=== PATIENT | male | born 2005 | race Caucasian/White ===

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

== ENCOUNTER 2025-07-30 17:20 | Emergency (ER) | payer BC, SELFPAY ==
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
--- OUTSIDE RECORDS SUMMARY | 2025-07-30 17:22 | XMS_ITS | Clinical Summary ---
Author Organization [facility] [employer] Address [address] [place] [address] Care Team Providers Care Ward Aide Name Role Phone Chiquis Mcgill MD Primary Care Provider [phone] Jenni Avalos MD Unavailable [phone] Source Comments [facility] [employer],non-owned Affiliates and Associated Physician Practices is amultiple site organization consisting of ambulatory clinics and hospital sitesin [place], [place] and [place]. This disclosure is being madepursuant to the Care Everywhere program and may not contain all information available regarding this patient. Last updated 18.[facility] [employer] Allergies No known active allergies Medications * This document contains information received from the source organization and may not represent a complete record from that organization. * Be aware that medications may not be up to date on this document. Alwaysverify current medications with the patient. SUMAtriptan (IMITREX) 25 MG tablet Take 1 tab by mouth once at first sign of migraine. May repeat one time after 2 hours if needed. 9 tablet 07/19/2021 Active ondansetron, disintegrating, (ZOFRAN ODT) 4 MG tablet Take 1 (one) tablet by mouth every 6 hours as needed for Nausea/Vomiti ng Allow tablet to dissolve on the tongue 9 Each 10/22/2021 Active omeprazole (PRILOSEC) 40 MG capsule Take 1 (one) capsule by mouth once daily 30 capsule 2 11/12/2021 Active hyoscyamine 0.125 MG tablet Take 1 (one) tablet by mouth every 4 hours as needed for Spasms 60 Each 3 11/12/2021 Active escitalopram (LEXAPRO) 5 MG tablet Take 1 (one) tablet by mouth once daily 30 tablet 01/02/2022 Active cyproheptadine (PERIACTIN) 4 MG tablet Take 1 (one) tablet by mouth at bedtime 30 tablet 5 01/09/2022 Active Active Problems Problem Noted Date Diagnosed Date Non-intractable vomiting 11/12/2021 Little league elbow syndrome, 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 BMI (body mass index), pedia tric, 85% to less than 95% for age 0603/18/2013 Resolved Problems Problem Noted Date Diagnosed Date Resolved Date Functional diarrhea 11/12/2021 12/11/19 22 Closed fracture of middle or proximal phalanx or phalanges of hand 03/24/2013 01/29/2021 Immunizations Immunization Administration Dates Next Due DTaP VACCINE IM (6wk-6yrs) 02/27/2009,,2005,07/02,2005 HEP A PEDS 2 DOSE 04/19/2008,09/04/2006 HEP B VACCINE, PED/ADOL 2005,2005, HIB BOOSTER 06/05/2006,2005,2005 Human Papilloma Virus Nineva lent Vaccine 01/03/2021,05/31/2019 INFLUENZA VACCINE 06/20/2009, 8,08/06/2007,09/04 INFLUENZA VACCINE, QUADR. (F LUZONE; FLULAVAL; FLUARIX; AFLURIA QUADRIVALENT; 6MO+), 0.5 ML (IIV4) 06/26/2022,07/19/2021,05/31/2019,06/21 Influenza Nasal 07/25/2011 TRACI VACCINE QUAD LAIV4 PF NASAL 07/23/2013 MENINGOCOCCAL ACWY (MCV4P) VAC IM 03/29/2021,04/2016 MMR 04/15/2010,02/27/2006 PNEUMOCOCCAL CONJ, PEDS 02/27/2006,09/01,2005,04/30 POLIO IPV 02/27/2009, 5,2005,04/30 PPD 02/27/2006 TDAP (7yrs+) 06/05/2016 VARICELLA 04/15/2010,02/27/2006 Family History Medical History Relation Name Comments Negative Family History Brother Negative Family History Father Peptic Ulcer Disease Father Negative Family History Maternal Aunt Diabetes Maternal Grandfather Negative Family History Maternal Grandfather Negative Family History Maternal Grandmother Negative Family History Maternal Uncle Negative Family History Mother Negative Family History Other Negative Family History Paternal Aunt Negative Family History Paternal Grandfather Arthritis Paternal Grandmother Negative Family History Paternal Grandmother Negative Family History Paternal Uncle Negative Family History Sister Relation Name Status Comments Brother Father Maternal Aunt Maternal Grandfather Maternal Grandmother Maternal Uncle Mother Other Paternal Aunt Paternal Grandfather Paternal Grandmother Paternal Uncle Sister Social History Tobacco Use Types Packs/Day Years Used Date Smoking Tobacco: Passive Smo ke Exposure - Never Smoker Smokeless Tobacco: Never Comments:Father smokes on oc casion away from children. Alcohol Use Standard Drinks/Week Comments Yes 0 (1 standard drink = 0.6 oz pur e alcohol) AUDIT-C Answer Date Recorded Q1: How often do you have a drink containing alc ohol? Monthly or less 01/02/2022 Q2: How many drinks containi ng alcohol do you have on a typical day when you are drinking? 3 or 4 01/02/2022 Q3: How often do you have si x or more drinks on one occasion? Less than monthly 01/02/2022 PHQ-2 Answer Date Recorded PHQ2 TOTAL SCORE 0 10/22/2021 Sex and Gender Information Value Date Recorded Sex Assigned at Male 11/12/2021 9:05 AM ROUTE DRIVER SALESPERSON Legal Sex Male 8:36 AM ROUTE DRIVER SALESPERSON Gender Identity Male 11/12/2021 9:05 AM ROUTE DRIVER SALESPERSON Sexual Orientation Straight 11/12/2021 9: 05 AM ROUTE DRIVER SALESPERSON Last Filed Vital Signs Vital Sign Reading Time Taken Comments Blood Pressure 118/65 12/30/2021 12:45 PM CDT Pulse 56 12/30/2021 12:45 PM CDT Temperature 36.1 C (97 F) 12/30/2021 11:55 AM CDT Respiratory Rate 10 12/30/2021 1:00 PM CDT Oxygen Saturation 100% 12/30/2021 1:00 PM CDT Inhaled Oxygen Concentration 100% 12/30/2021 1 2:15 PM CDT Weight 84.4 kg (186 lb 1.1 oz) 12/30/2021 8:56 A M CDT Height 175.4 cm (5' 9.06) 12/30/2021 8:56 AM CD T Body Mass Index 27.43 12/30/2021 8:56 AM CDT Plan of Treatment Health Maintenance Due Date Last Done Comments HIV SCREENING 02/26/2020 MENINGOCOCCAL (Group B) VACC INE SHARED DECISION-MAKING (1 of 2 - Standard) 2021 HEPATITIS C SCREENING 02/21/2023 DEPRESSION SCREENING 09/28/2024 10/22/2021 COVID-19 VACCINE ( - 2023-2 5 season) 2025 INFLUENZA VACCINE (#1) 2025 , 07/19/2021, 05/31/2019, Additional history exists DTAP/TDAP/TD VACCINES (7 - T d or Tdap) 06/05/2026 06/05/2016, 02/27/2009, 06/05/2006, Additional history exists ZOSTER VACCINE (1 of 2) 2055 HEPATITIS B VACCINE Completed 2005, 2005, 2005 PNEUMOCOCCAL VACCINE Completed 02/27/2006, 2005, 2005, Additional history exists HIB VACCINE Completed 06/05/2006, 01/2005, 2005 HPV VACCINE Completed 01/03/2021, 05/31/2019 MENINGOCOCCAL GROUPS A/C/Y/W VACCINE Completed 03/29/2021, 06/05/2016 Goals Goal Patient Goal Type Associated Problems Recent Progress Patient-Stated? Author Use safety retraint in car Lifestyle On track( 022 10:13 AM ROUTE DRIVER SALESPERSON) Yoly Weiner RN Insurance LEODAN ANTHEM * Guarantor: NIKHIL WADE Account Type Relation to Patient Date of Phone Billing Address Personal/Family 2005 J[address] WADE [address] [place] [address] Care Teams Ward Aide Relationship Specialty Start Date End Date Chiquis Mcgill MD PCP - General Pediatrics 10/07/11 Jenni Avalos MD [address] [place] [address] [place] [id number] Allergy and Immunology 05/31/19
--- OUTSIDE RECORDS SUMMARY | 2025-07-30 17:23 | XMS_ITS | Encounter Summary ---
Author Hub Email Address Preferred Language Latvian Marital Status Single Sabianist Affiliation Unknown Race White Ethnic Group Not or Lati no Author Organization [facility] Address [address] [place] [address] Care Team Providers Care Bobtail Driver Name Role Phone Chiquis Mcgill MD Primary Care Provider [phone] Jenni Avalos MD Unavailable [phone] Reason for Visit * Reason Onset Date Comments Procedure 12/18/2021 Encounter Details Date Type Department Care Team (Late st Contact Info) Description 12/18/2021 Telephone [facility] - [address] [place] [address] Kristan Medrano MD [address] [place] [id number] Procedure Social History Tobacco Use Types Packs/Day Years Used Date Smoking Tobacco: Passive Smo ke Exposure - Never Smoker Comments:Father smokes on oc casion away from children. Alcohol Use Standard Drinks/Week Comments Not Asked 0 (1 standard drink = 0.6 oz pur e alcohol) PHQ-2 Answer Date Recorded PHQ2 TOTAL SCORE 0 10/22/2021 Sex and Gender Information Value Date Recorded Sex Assigned at Male 11/12/2021 9:05 AM CASE RESOLUTION SPECIALIST Legal Sex Male 8:36 AM CASE RESOLUTION SPECIALIST Gender Identity Male 11/12/2021 9:05 AM CASE RESOLUTION SPECIALIST Sexual Orientation Straight 11/12/2021 9: 05 AM CASE RESOLUTION SPECIALIST COVID-19 Exposure Response Date Recorded In the last month, have you been in contact with someone who was confirmed or suspected to have Coronavirus / COVID-19? No / Unsure 11/20/2021 8:11 AM CASE RESOLUTION SPECIALIST documented as of this encounter Miscellaneous Notes * Telephone Encounter - Ubaldo, Saima L, RN - 02/05/2022 8:32 AM CDT Spoke to Nikhil's mom - she will call PCP who prescribed lexapro to request refill. * Telephone Encounter - Darren Sharpe - 02/04/2022 3:15 PM CDT Admin received phone call from mom stated their pharmacy sent over a refill request for Escitalopram medicine. Mom state patient is out and needs refill. * Telephone Encounter - Kristan Medrano MD - 01/09/2022 7:23 PM CDT Signed thanks * Telephone Encounter - Cristina Slade RN - 01/09/2022 1:[address] Medrano's message with mom. She would like to start pt on periactin, rx to go to the [facility] in [place]. Send entire content of Dr Medrano's message to mom via [employer]. Routing back to Dr Medrano for periactin Rx signature * Telephone Encounter - Kristan Medrano MD - 01/09/2022 8:25 AM CDT Please give the family the good news Endoscopy and biopsy as discussed shows no signs of infection, allergy, celiac disease ( gluten allergy), Crohn's, colitis or cancer. This goes with irritable bowel syndrome, the nerves in bowels are sensitive, but the lining is normal, it will not bleed, gets blocked, need surgery, or turn into cancer. His enzymes to digest the sugars are normal But his latose is on low normal side, He may benefit from lactose free milk or trying lactadid pills Treatment options ( choose one) 1- medication 2- diet 3- therapy 4- IBstim He is already on Laxpero that can help my suggestion would be to go back to Pysch or PCP and increase dose Or We can add periactin as it doesn't interfere with other medication and its excellent in decreasing pain and vomiting One down side would increase appetite and his weight So I would like to make sure he has healthy snacks avialable so he Ddoesnt gain more weight Please send the family this educational material [email or web address] https://www.health.qld.gov.au/__data/assets/pdf_file/0031/348238/gastro-lactose. pdf Please FU in clinic in 3 month Medication options ( choose one) Periactin: antihistaminic found to relax the stomach and improves the belly pain, improves appetite Side effects sleepiness and weight gain SSRI or TCA ( anti depressant or antianxiety) we use much lower dose than psychiatry, it works on serotonin hormones as its found not only in brain but nerves on bowels as well Side effect: heart arrhthymias ( we need EKG, picture of heart to assure no prolonged Qt syndrome),if you have suicidal thoughts it cam increase initially so we have to monitor in the 1st 2 weeks - For medication, If you are struggling to gain weight we recommend Periactin better If you have underlying anxiety, depression, headaces we recommend SSRI or TCA Diet Low FODAMP diet We exclude food that is gas producing ( Fructan), as any bloating, distention causes pain or discomfort in patient with IBS We will have you meet with RD We do a modified one, look at the food that are swapna FODMAP and out of the list choose the ones that you consume most and stop them for 2 weeks, once you feel better we can try to introduce them oneby one, each in a week to see which one causes you discomfort the most to stay away from https://med.[facility]/ginutrition/wp-content/uploads/sites/199//Low_FO DMAP_Diet_12.16.pdf Therapy Its a form of self hypnotherapy, that is proven very effective in IBS, we have Angelita galindo, excellent HIGHWAY ADMINISTRATIVE ENGINEER to guide you through it. She will teach techniques to calm down the nerves in your bowels and you will be able to use that later at home or any place you need it IB-Stim New states of the art- FDA approved therapy for IBS Device attaches to your ear, and stimulate the nerves centers to lower the discomfort in your abdomen We are very fortunate to have Dr Sanchez and be able to offer this service Side effects ear pain We also need to get your insurance to approve it * Telephone Encounter - Saima Hinojosa - 12/18/2021 12:30 PM CDT Spoke to patient's father and moved patient's procedure to 10a on 12/30 instead of 945a on 12/30 w/Dr. Medrano. No new prep needed/. documented in this encounter Plan of Treatment Not on file documented as of this encounter Goals Goal Patient Goal Type Associated Problems Recent Progress Patient-Stated? Author Use safety retraint in car Lifestyle On track( 022 10:13 AM CASE RESOLUTION SPECIALIST) No Yoly Vernon RN documented as of this encounter Visit Diagnoses Not on filedocumented in this encounter Care Teams Bobtail Driver Relationship Specialty Start Date End Date Chiquis Mcgill MD PCP - General Pediatrics 10/07/11 Jenni Avalos MD [address] [place] [address] Allergy and Immunology 05/31/19 documented as of this encounter
[2025-07-30 17:26] VITALS: BP 140/93; PULSE 76; RESP 18; TEMP 36.6; O2SAT 99
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
== END 2025-07-30 18:17 | disposition home or self-care (01) ==
PROVIDERS: Emergency Provider Nurse Practitioner Family
DX: S90.31XA Contusion of right foot, initial encounter (principal); V86.09XA Driver of other special all-terrain or other off-road motor vehicle injured in traffic accident, initial encounter
CPT/HCPCS: 73630; 99213; G0463